=== PATIENT | female | born 1990 | race Caucasian/White ===

== ENCOUNTER 2017-02-07 12:16 | Emergency (ER) | payer OTHER ==
[2017-02-07 12:31] VITALS: BP 127/70
[2017-02-07] MEDS ORDERED: BUFFERED LIDOCAINE 10 ML SYRINGE ONE (13:01)
--- NOTE | 2017-02-07 13:17 | ED Physician Documentation ---
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 Tetanus is up-to-date, 3 years ago per her.) Review of Systems Constitutional: reports: Reviewed and negative Nose: reports: Reviewed and negative Throat: reports: Reviewed and negative PD PAST MEDICAL HISTORY - Past Medical History Past Medical History: No - Present Medications Home Medications: Ambulatory Orders Medication Instructions Recorded Confirmed Cephalexin [Keflex] 500 mg PO QID #30 capsule 02/07/17 - Allergies Allergies/Adverse Reactions: Allergies Allergy/AdvReac Type Severity Reaction Status Date / Time sulfamethoxazole Allergy Hives Verified 02/07/17 12:28 [From Bactrim] trimethoprim [From Bactrim] Allergy Hives Verified 02/07/17 12:28 acetaminophen [From Percocet] AdvReac Itching Verified 02/07/17 12:28 oxycodone HCl * AdvReac Itching Verified 02/07/17 12:28 [From Percocet] Penicillins AdvReac Itching Verified 02/07/17 12:28 - Social History Does the pt smoke?: No Smoking Status: Never smoker PD ED PE NORMAL - Vitals Vital signs reviewed: Yes - General General: Alert and oriented X 3, No acute distress - HEENT HEENT: PERRL, EOMI - Neck Neck: Supple, no meningeal sign, No bony TTP - Cardiac Cardiac: RRR, No murmur - Respiratory Respiratory: No respiratory distress, Clear bilaterally - Abdomen Abdomen: Soft, Non tender - Derm Derm: Normal color, Warm and dry - Extremities Extremities: Other (On the dorsum of the left thumb there is a 2 cm laceration over the proximal phalanx. On exploration she does have a central extensor tendon laceration, about 80% of the tendon but with normal strength in extension and normal neurovascular status of the tip.) - Neuro Neuro: Alert and oriented X 3, Normal speech - Psych Psych: Normal mood, Normal affect Results - Vitals Vitals: Vital Signs - 24 hr 02/07/17 12:29 Heart Rate 66 Respiratory 16 Rate Blood Pressure 127/70 O2 Saturation 100 Oxygen O2 Source Room air Procedures - Laceration (location) Left thumb Length in cm: 2 Wound type: Linear Neurovascular status: Sensory intact, Vascular intact Tendon involvement: Tendon Injury (80% central tendon laceration of the extensor tendon of the left thumb) Anesthesia: Lidocaine 1%, With bicarb Wound Preparation: Hibiclens, Irrigated copiously NS Skin layer closure: Nylon, Interrupted, Size #-0 - enter number (4-0) Other: Tetanus UTD Complexity: Simple - Splint (location) L hand Splint applied by: Tech Type of splint: Fiberglass, Short arm, Thumb spica Other: Patient tolerated well, No complications, Neurovascular intact PD MEDICAL DECISION MAKING - ED course ED course: Wound was closed, the case was discussed by phone with Dr. Field, orthopedic law firm consultant who will see her in clinic and follow-up. Departure - Departure Disposition: 01 Home, Self Care Clinical Impression: Laceration Extensor tendon laceration of finger with open wound Qualifiers: Encounter type: initial encounter Qualified Code(s): S66.529A - Laceration of intrinsic muscle, fascia and tendon of unspecified finger at wrist and hand level, initial encounter; S61.209A - Unspecified open wound of unspecified finger without damage to nail, initial encounter Condition: Good Record reviewed to determine appropriate education?: Yes Instructions: ED Laceration Hand Follow-Up: Edy Field MD [Provider Admit Priv/Credential] - Prescriptions: Cephalexin [Keflex] 500 mg PO QID #30 capsule Comments: Keep the splint on and dry, follow-up with Dr. Field next week, call his office first thing Friday. He is aware of your case. Forms: Activity restrictions
[2017-02-07] MEDS ORDERED: CEPHALEXIN 250 MG CAPSULE PO STA (13:18)
[2017-02-07] MEDS ORDERED: CEPHALEXIN 250 MG CAPSULE PO ONE (13:33)
== END 2017-02-07 13:57 | disposition home or self-care (01) ==
LOC: ED 12:16
DX: S66.422A Laceration of intrinsic muscle, fascia and tendon of left thumb at wrist and hand level, initial encounter (principal); W31.82XA Contact with other commercial machinery, initial encounter; Y92.512 Supermarket, store or market as the place of occurrence of the external cause; Y99.0 Civilian activity done for income or pay
CPT/HCPCS: 1040M; 12001; 99283; A9270

== ENCOUNTER 2017-02-17 13:36 | Outpatient (CLI) | payer OTHER | END 2017-02-17 13:37 | disposition home or self-care (01) | LOC: LAB 13:36 | PROVIDERS: ATTEND Orthopaedic Surgery | DX: Z01.818 Encounter for other preprocedural examination (principal); S66.222A Laceration of extensor muscle, fascia and tendon of left thumb at wrist and hand level, initial encounter | CPT/HCPCS: 87640 ==

== ENCOUNTER 2017-02-18 10:06 | Day surgery (SDC) | payer OTHER ==
[2017-02-18] MEDS ORDERED: ceFAZolin 2 GM/50 ML 50 ML IV ONE (10:29)
[2017-02-18] MEDS ORDERED: LACTATED RINGERS 1,000 ML IV ONE ×2 (10:30→11:09)
[2017-02-18 10:50] LABS: HCG UR QUAL NEGATIVE
[2017-02-18] MEDS ORDERED: MIDAZOLAM 2 MG/2 ML VIAL IVP ONE (11:00)
[2017-02-18] MEDS ORDERED: PROPOFOL 200 MG/20 ML VIAL IVP ONE (11:00)
[2017-02-18] MEDS ORDERED: LIDOCAINE-PF 2% 10 ML AMP SUBQ ONE (11:00)
[2017-02-18] MEDS ORDERED: fentaNYL 100 MCG/2 ML VIAL IVP ONE (11:00)
[2017-02-18] MEDS ORDERED: BUPIVACAINE 0.25%-EPI 1:200000 PF 30 ML VIAL SUBQ ONE (11:09)
[2017-02-18 12:07] VITALS: BP 98/62
--- NOTE | 2017-02-18 12:14 | OPERATIVE REPORT ---
DATE OF SURGERY: 02/18/2017 00:00:00 PREOPERATIVE DIAGNOSIS: Left thumb extensor tendon laceration. POSTOPERATIVE DIAGNOSIS: Left thumb extensor tendon laceration with the laceration at the level of th e proximal phalanx of the thumb. OPERATIVE PROCEDURE: Left thumb wound exploration and repair of extensor tendon at the level of the d orsal thumb proximal phalanx. SURGEON: Edy Field MD. ANESTHESIA: General by Jamison Campbell CRNA. 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 She had initial closure in the emerge ncy room and now presents for definitive exploration and surgical repair. FINDINGS AT SURGERY: The patient's wound was healing well with no infection. At open exploration, the patient indeed had an oblique incision through 80% with the extensor tendon involving its more ulnar aspect. This was a very clean laceration with no foreign body. DESCRIPTION OF OPERATIVE PROCEDURE: The patient was taken to the operating room, was given MAC sedati on and a local anesthetic block around her thumb and hand with 1% lidocaine with epinephrine. Under t ourniquet control at 250 mmHg, the surgical wound was reopened removing suture and then opened throug h the primary incision with a slight extension on the proximal aspect. This allowed excellent exposur e of the tendon laceration for direct primary repair of the extensor tendon, which was accomplished w ith interrupted 4-0 FiberWire, 3 in number. The area was irrigated. The repair was anatomic. The skin was closed with 4-0 Prolene in an interrupted fashion. Sterile dressings were applied followed by a thumb spica cast and the patient was taken to the recovery room in stable condition. ESTIMATED BLOOD LOSS: Minimal. COMPLICATIONS: None. SPONGE AND NEEDLE COUNTS: Correct. JOB #: [id number] EXT JOB #:[id number]
== END 2017-02-18 10:07 | disposition home or self-care (01) ==
LOC: SDS 10:06
PROVIDERS: ATTEND Orthopaedic Surgery
PROC: 0LQ80ZZ Repair Left Hand Tendon, Open Approach (ICD-10-PCS; principal; 2017-02-18 11:30)
DX: S66.222A Laceration of extensor muscle, fascia and tendon of left thumb at wrist and hand level, initial encounter (principal); Y99.0 Civilian activity done for income or pay; Z86.14 Personal history of Methicillin resistant Staphylococcus aureus infection; Z88.0 Allergy status to penicillin
CPT/HCPCS: 26418; 81025; J0690; J7120

== ENCOUNTER 2017-11-10 09:00 | Outpatient (CLI) | payer OTHER ==
[2017-11-10 14:26] LABS: BASOPHILS % (AUTO) 0.8 %; EOSINOPHILS # (AUTO) 0.2 10^3/uL (0.0-0.7); EOSINOPHILS % (AUTO) 3.6 %; HGB - HEMOGLOBIN 13.7 g/dL (12.0-16.0); LYMPHOCYTES # (AUTO) 1.5 10^3/uL (1.5-3.5); LYMPHOCYTES % (AUTO) 29.3 %; MEAN CORPUSCULAR HEMOGLOBIN 30.3 pg (27.0-31.0); MEAN CORPUSCULAR HGB CONC 33.3 g/dL (32.0-36.0); MEAN CORPUSCULAR VOLUME 90.9 fL (81.0-99.0); MEAN PLATELET VOLUME 8.7 fL (7.9-10.8); MONOCYTES # (AUTO) 0.5 10^3/uL (0.0-1.0); NEUTROPHILS # (AUTO) 2.8 10^3/uL (1.5-6.6); NEUTROPHILS % (AUTO) 56.3 %; PLT - PLATELET COUNT 244 10^3/uL (130-450); RED BLOOD COUNT 4.53 10^6/uL (4.20-5.40); RED CELL DISTRIBUTION WIDTH 12.3 % (12.0-15.0)
[2017-11-10 14:42] LABS: ALBUMIN 4.3 g/dL (3.2-5.5); ALBUMIN/GLOBULIN RATIO 1.1 (1.0-2.2); ALKALINE PHOSPHATASE 57 IU/L (42-121); ALT ALANINE AMINOTRANSFERASE 13 IU/L (10-60); AST ASPARTATE AMINOTRANSFERASE 21 IU/L (10-42); BILIRUBIN,TOTAL 0.7 mg/dL (0.2-1.0); BUN - BLOOD UREA NITROGEN 21 mg/dL (6-20); CALCIUM 9.4 mg/dL (8.5-10.3); CARBON DIOXIDE - CO2 29 mmol/L (21-32); CHLORIDE 101 mmol/L (101-111); CHOL/HDL RATIO 4.4 (<4.4); CHOLESTEROL 205 mg/dL; CREATININE 0.7 mg/dL (0.4-1.0); GFR - MDRD 100 (>89); GLUCOSE 78 mg/dL (70-100); HDL CHOLESTEROL 47 mg/dL; LDL CHOLESTEROL,CALCULATED 141 mg/dL; SODIUM 136 mmol/L (135-145); TOTAL PROTEIN 8.1 g/dL (6.7-8.2); VLDL CHOLESTEROL 17 mg/dL
== END 2017-11-10 09:01 | disposition home or self-care (01) ==
LOC: LAB.R 09:00
PROVIDERS: ATTEND Physician Assistant Medical
DX: Z00.00 Encounter for general adult medical examination without abnormal findings (principal); Z79.899 Other long term (current) drug therapy; E55.9 Vitamin D deficiency, unspecified
CPT/HCPCS: 80053; 80061; 82306; 83721; 84443; 85025